=== PATIENT | female | born 1960 | race Hispanic/Latino ===

== ENCOUNTER → 2018-05-16 | Day surgery (SDC) | payer BC ==
[2018-05-15 12:04] LABS: BASOPHILS % 0.4 % (0.0-1.0); EOSINOPHILS # (AUTO) 0.1 (0.0-0.4); EOSINOPHILS % 1.2 % (0.0-6.0); HEMATOCRIT 40.2 % (34.2-44.1); HEMOGLOBIN 13.5 g/dL (12.0-16.0); LYMPHOCYTES # (AUTO) 2.9 (1.0-3.2); LYMPHOCYTES % 30.5 % (18.0-39.1); MEAN CORPUSCULAR HEMOGLOBIN 29.3 pg (28-32); MEAN CORPUSCULAR HGB CONC 33.6 g/dL (31-35); MEAN CORPUSCULAR VOLUME 87.2 fL (81-99); MONOCYTES # (AUTO) 0.6 (0.2-0.8); MONOCYTES % 5.8 % (4.4-11.3); NEUTROPHILS # (AUTO) 5.9 (2.1-6.9); NEUTROPHILS % 61.7 % (38.7-80.0); PLATELET COUNT 284 x10e3/uL (140-360); RED BLOOD COUNT 4.61 x10e6/uL (3.6-5.1); RED CELL DISTRIBUTION WIDTH 13.2 % (11.7-14.4)
[2018-05-15 12:39] LABS: ALANINE AMINOTRANSFERASE 16 IU/L (0-55); ALBUMIN 3.8 g/dL (3.5-5.0); ALBUMIN/GLOBULIN RATIO 1.4 (0.8-2.0); ALKALINE PHOSPHATASE 49 IU/L (40-150); BLOOD UREA NITROGEN 10 mg/dL (7-26); BUN/CREATININE RATIO 16 (6-25); CARBON DIOXIDE 25 mmol/L (22-29); CHLORIDE 100 mmol/L (98-107); CHOLESTEROL 250 MD/DL (0-199); CREATININE, SERUM 0.63 mg/dL (0.57-1.11); EST GLOMERULAR FILTRATION RATE > 60 ML/MIN (60-); GLUCOSE 105 mg/dL (74-118); HDL CHOLESTEROL 63 MG/DL (40-60); LDL CHOLESTEROL 156 MG/DL (60-130); SODIUM 135 mmol/L (136-145); TRIGLYCERIDES 155 MG/DL (0-149)
[2018-05-16] VITALS (11 sets, daily range): BP systolic 91–129; BP diastolic 65–80
[~2018-05-16] VITALS: Ht 165.1 cm; Wt 124.7 kg
[~2018-05-16] MED LIST: FENTANYL CITRATE/PF 100MCG/2 ML INJ ONE; HEPARIN SOD/SOD CHLORIDE 1,000 ML ONE; IOPAMIDOL 370 MG/ML 200 ML INFUS..BTL INJ ONE; LIDOCAINE HCL 2% LOCAL 20 ML VIAL ONE; LOSARTAN POTASS25 MG; METOPROLOL SUCC25 MG; MIDAZOLAM HCL 2 MG/2 ML VIAL ONE; SODIUM CHLORIDE 0.9% 1000ML 1,000 ML ONE; VERAPAMIL HCL 2.5 MG/ML 2 ML VIAL ONE
--- NOTE | 2018-05-16 12:02 | Operative Report ---
DATE OF PROCEDURE: May 16, 2018 PROCEDURE: Cardiac catheterization report. INDICATIONS: Systolic heart failure with ejection fraction of 35% to 39%. PREPROCEDURE ASSESSMENT: Preprocedure medical records, imaging data, findings, prior experience with anesthesia, social history and family history was reviewed with the patient prior to the procedure. Patient was deemed to be an appropriate candidate for moderate sedation. Informed consent was obtained after explaining the risks, the benefits and alternatives of the procedure the patient and her surrogate. MEDICATION ADMINISTRATION: Please see nursing notes for medications administered during this procedure. PROCEDURES PERFORMED 1. Right heart catheterization via right brachial vein. 2. Coronary angiography via right radial artery. 3. Left heart catheterization. PROCEDURE DETAILS: Patient was brought to the cardiac catheterization laboratory in a fasting state. Right arm was prepped and draped in a sterile fashion. Ultrasound-guided access to the right brachial vein was obtained using micropuncture kit. Right heart catheterization was performed using a 5-[place] catheter. Access to the right radial artery was obtained using modified Seldinger technique and a 6-[place] Slender sheath was inserted into the right radial artery. Coronary angiography and left heart catheterization was performed using a Tonia preformed catheter and a pigtail catheter respectively. Multiple orthogonal views were taken of each coronary artery. All catheters were removed over a guidewire. Case ended without any complications. The right radial artery access site was closed using a TR band and right brachial venous access site was closed via manual compression in the holding area. PERTINENT FINDINGS: No obstructive CAD. The patient has a very large left circumflex as well as large RCA, has small caliber LAD with 1 dominant diagonal. Right heart catheterization is as follows. Pulmonary capillary wedge pressure is 15/15/14, pulmonary artery pressure is 46/20/31. Right ventricular pressure is 47/13/15. Right atrial pressure is 15/10/11. Pulmonary capillary wedge saturation was 99%. Pulmonary artery saturation was 62%, resulting in a Live cardiac output of 3.25 liters per minute and a cardiac index of 1.43 liters per minute per meter squared. Left ventricular end-diastolic pressure was 24 mmHg and there was no gradient across the aortic valve. CONCLUSION: Nonischemic cardiomyopathy with severely decreased cardiac output, mild pulmonary hypertension. RECOMMENDATIONS 1. Post procedure care in the holding area under TR Band protocol. 2. Resume heart failure medications as an outpatient. Will start patient on Entresto. 3. Follow up in clinic 2 weeks post procedure. Job#: [id number] [employer]
== END | disposition home or self-care (01) ==
LOC: CATH LAB 07:29
PROVIDERS: ATTEND Internal Medicine
DX: I42.8 Other cardiomyopathies (principal); I11.0 Hypertensive heart disease with heart failure; I50.42 Chronic combined systolic (congestive) and diastolic (congestive) heart failure; I27.20 Pulmonary hypertension, unspecified; I87.2 Venous insufficiency (chronic) (peripheral); R09.89 Other specified symptoms and signs involving the circulatory and respiratory systems; R73.03 Prediabetes; E66.01 Morbid (severe) obesity due to excess calories; Z01.812 Encounter for preprocedural laboratory examination; Z68.42 Body mass index [BMI] 45.0-49.9, adult; Z82.49 Family history of ischemic heart disease and other diseases of the circulatory system
CPT/HCPCS: 36415; 80053; 80061; 85025; 93460; C1769; J2001; J2250; J7030; Q9967